=== PATIENT | male | born 1960 | race Caucasian/White ===

== ENCOUNTER 2017-08-09 19:04 | Emergency (ER) | payer OTHER ==
--- NOTE | 2017-08-09 19:17 | CPEKG ---
Heart Rate: 94 RR Interval: 638 P-R Interval: 140 QRSD Interval: 104 QT Interval: 364 QTC Interval: 456 P Etters: 55 QRS Etters: -5 T Wave Etters: 26 EKG Severity - OTHERWISE NORMAL ECG - EKG Impression: SINUS RHYTHM EKG Impression: VENTRICULAR PREMATURE COMPLEX Electronically Signed By: Jonas Berkowitz 09-Aug-2017 22:33:45
[2017-08-09 19:36] VITALS: TEMP 98.6
[2017-08-09 19:48] LABS: PLATELET COUNT 223 10^3/uL (150-400)
--- NOTE | 2017-08-09 20:23 | EDPHY ---
H & P Time Seen by Provider: 08/09/17 19:43 HPI/ROS: HPI Palpitations. 56-year-old male by private vehicle. This patient reports that last week he noticed some intermittent palpitations which she describes as his heart skipping a beat. He reports that he got home tonight at 6:00 p.m.. He took a hot shower and while in the hot shower he started feeling these palpitations every 20 or 30 beats. No associated chest pain. No shortness of breath. He has had no cough. States that he drinks 2-3 caffeinated beverages per day. No new supplements or energy drinks. No new medications. ROS: Constitutional: No fever, no chills. No weakness. Respiratory: No cough. No shortness of breath. Cardiac: No chest pain, as above. Gastrointestinal: No abdominal pain, no vomiting, no diarrhea. Neurological: No headache. No focal weakness or altered sensation. Past medical history: Hypertension. He takes lisinopril. Social history: Nonsmoker. Drinks alcohol socially. No IV drugs or street drugs. Physical Exam: General Appearance: Alert, no distress. This patient is responding to questions appropriately and in full sentences. This patient appears well- hydrated and well-nourished. Eyes: Pupils equal and round no pallor or injection. No lid edema, erythema or injection. Respiratory: There are no retractions, lungs are clear to auscultation with good air movement bilaterally. Cardiovascular: Regular rate and rhythm. No murmur. Neurological: Motor sensory function is grossly intact. Cranial nerves are normal. Gait is normal. Skin: Warm and dry, no rashes. Musculoskeletal: Neck is supple and nontender. Extremities are symmetrical. All joints range without pain or impingement. Psychiatric: No agitation. No depression. Database: EKG: EKG time is 7:15 p.m.; EKG shows a narrow complex normal sinus rhythm with a ventricular rate of 94. PVC noted. The MI, QRS, QT intervals are within normal limits. There are no ST-T wave changes indicative of ischemic or injury pattern. No evidence of right heart strain. No evidence of WPW, no Brugada syndrome, no hypertrophic cardiomyopathy. Interpreted by me. Imaging: Procedures: Emergency department course: IV placed. EKG obtained and reviewed by myself. Vital signs reviewed and are unremarkable. 8:30 p.m., patient re-evaluated. Resting comfortably at this time. Results of his EKG and blood work discussed with him. He feels comfortable going home and I feel he is safe for discharge. He has been instructed not to ingest energy drinks or caffeinated beverages. I will have him follow up with his primary care physician for re-evaluation. He feels comfortable with this plan. Return to emergency department precautions reviewed. All of his questions were answered. He was discharged in good condition. Differential Diagnosis: The differential diagnosis on this patient includes but is not limited to premature ventricular contraction. Arrhythmia, pulmonary embolism, electrolyte abnormality, acute coronary syndrome unlikely. This represents a partial list of diagnoses considered. These considerations are based on history, physical exam, past history, reassessment and diagnostic testing. Smoking Status: Never smoked Constitutional: Initial Vital Signs Temperature (C) 37.0 C 08/09/17 19:33 Heart Rate 84 08/09/17 19:33 Respiratory Rate 21 H 08/09/17 19:33 Blood Pressure 147/106 H 08/09/17 19:33 O2 Sat (%) 95 08/09/17 19:33 O2 Delivery Mode Room Air Allergies/Adverse Reactions: amoxicillin Allergy (Verified 08/09/17 19:31) Home Medications: Medication Instructions Recorded Lisinopril 08/09/17 Medical Decision Making - Data Points Laboratory Results: Laboratory Results 08/09/17 19:20 08/09/17 19:20 08/09/17 08/09/17 19:20 19:20 WBC 4.94 10^3/uL 10^3/uL (3.80-9.50) RBC 5.35 10^6/uL 10^6/uL (4.40-6.38) Hgb 17.4 g/dL g/dL (13.7-17.5) Hct 48.2 % % (40.0-51.0) MCV 90.1 fL fL (81.5-99.8) MCH 32.5 pg pg (27.9-34.1) MCHC 36.1 g/dL g/dL (32.4-36.7) RDW 11.9 % % (11.5-15.2) Plt Count 223 10^3/uL 10^3/uL (150-400) MPV 9.3 fL fL (8.7-11.7) Neut % (Auto) 47.4 % % (39.3-74.2) Lymph % (Auto) 42.3 % % (15.0-45.0) Perkins % (Auto) 7.5 % % (4.5-13.0) Eos % (Auto) 1.6 % % (0.6-7.6) Baso % (Auto) 1.0 % % (0.3-1.7) Nucleat RBC Rel Count 0.0 % % (0.0-0.2) Absolute Neuts (auto) 2.34 10^3/uL 10^3/uL (1.70-6.50) Absolute Lymphs (auto) 2.09 10^3/uL 10^3/uL (1.00-3.00) Absolute Monos (auto) 0.37 10^3/uL 10^3/uL (0.30-0.80) Absolute Eos (auto) 0.08 10^3/uL 10^3/uL (0.03-0.40) Absolute Basos (auto) 0.05 10^3/uL 10^3/uL (0.02-0.10) Absolute Nucleated RBC 0.00 10^3/uL 10^3/uL (0-0.01) Immature Gran % 0.2 % % (0.0-1.1) Immature Gran # 0.01 10^3/uL 10^3/uL (0.00-0.10) Sodium 138 mEq/L mEq/L (135-145) Potassium 3.9 mEq/L mEq/L (3.5-5.2) Chloride 102 mEq/L mEq/L (97-110) Carbon Dioxide 23 mEq/l mEq/l (22-31) Anion Gap 13 mEq/L mEq/L (8-16) BUN 17 mg/dL mg/dL (7-23) Creatinine 0.9 mg/dL mg/dL (0.7-1.3) Estimated GFR > 60 Glucose 137 mg/dL H mg/dL (70-100) Calcium 10.1 mg/dL mg/dL (8.5-10.4) Departure - Departure Disposition: Home, Routine, Self-Care Clinical Impression: Premature ventricular contraction Condition: Good Instructions: Premature Ventricular Contractions (ED) Additional Instructions: Read and follow provided instructions. Follow-up with your primary care physician in 1-2 days for re-evaluation. Keep well hydrated. Avoid caffeinated beverages or energy drinks. Return to the emergency department for worsening symptoms, chest pain, shortness of breath or other serious concerns. Referrals: Ramon Gramajo MD [Primary Care Provider] - As per Instructions
[2017-08-09 20:46] VITALS: BP 121/87; PULSE 78; RESP 18; O2SAT 98
== END 2017-08-09 20:49 | disposition home or self-care (01) ==
DX: I49.3 Ventricular premature depolarization (principal); I10 Essential (primary) hypertension

== ENCOUNTER → 2017-11-28 | Outpatient (CLI) | payer OTHER | LOC: BMCIMAGING 09:35 | PROVIDERS: ATTEND Internal Medicine | DX: M17.12 Unilateral primary osteoarthritis, left knee (principal) ==